=== PATIENT | female | born 1985 | race Caucasian/White ===

== ENCOUNTER → 2018-03-18 | Emergency (ER) | payer MEDICAID ==
[~2018-03-18] VITALS: Ht 149.9 cm; Wt 50.0 kg
[~2018-03-18] MED LIST: CEPHALEXIN500 M1 PO; CYMBALTA; FLEXERIL10 MG PO; LEVAQUIN 750MG750 MG PO; LORTAB 5/500 501 TAB PO; MAGIC MOUTH PO; MOTRIN800 MG PO; NO HOME MEDICATIONS; NORCO 325 MG-51 TAB PO; PEN-VEE K500 MG PO; PENICILLIN V500 MG PO; PERCOCET 325 MG1 TA2 PO; PERIDEX (CHLOR480 ML MM; PHENERGAN 25 TA25 MG PO; REMERON15 M1 PO; TORADOL 10MG TA10 MG PO; TRAMADOL50 MG PO; ZIPRASIDONE
[2018-03-18 19:08] VITALS: BP 106/70; PULSE 82; TEMP 98.1
[2018-03-18 19:36] LABS: COLLECTION METHOD CLEAN CATCH
[2018-03-18 19:43] LABS: BASO % 0.3 % (0.0-2.0); EOS # 0.1 (0.0-0.7); GRAN # 6.9 (1.4-6.5); GRAN % 66.4 % (42.2-75.2); HEMATOCRIT 46.5 % (37.0-47.0); LYMPH # 2.8 (1.2-3.4); LYMPH % 27.1 % (20.0-51.0); MEAN CELL VOLUME 95 fl (80.0-100.0); MEAN CORPUSCULAR HEMOGLOBIN 33 pg (27.0-31.0); MEAN CORPUSCULAR HGB CONC 34 g/dl (33.0-37.0); MEAN PLATELET VOLUME 9.9 fl (7.4-10.4); MONO # 0.5 (0.1-0.6); MONO % 4.9 % (1.7-9.3); PLATELET COUNT 276 K/mm3 (130-400); RED BLOOD COUNT 4.88 M/mm3 (4.10-5.30); REDCELL DISTRIBUTION WIDTH-CV 13.6 % (11.5-14.5)
[2018-03-18 19:44] LABS: MUCOUS Present /lpf; PH 5 (5-8); URINE APPEARANCE Hazy; URINE BACTERIA Rare /hpf; URINE BILIRUBIN Negative (NEGATIVE); URINE BLOOD Negative (NEGATIVE); URINE COLOR Yellow; URINE GLUCOSE Negative (NEGATIVE); URINE KETONE Trace (NEGATIVE); URINE LEUKOCYTE ESTERASE Negative (NEGATIVE); URINE NITRATE Negative (NEGATIVE); URINE PROTEIN(semi-quant) Negative (NEGATIVE)
[2018-03-18 19:51] LABS: TRICYCLIC ANTIDEPRESS URINE NEGATIVE
[2018-03-18 19:52] LABS: ALANINE AMINOTRANSFERASE 36 U/L (9-52); ALBUMIN 4.4 gm/dL (3.5-5.0); ALKALINE PHOSPHATASE 73 U/L (50-136); ANION GAP 8 mmol/L (7-16); AST,SGOT 30 U/L (15-37); BILIRUBIN,TOTAL 0.4 mg/dL (0.0-1.0); BLOOD UREA NITROGEN 13 mg/dL (7-17); CALCIUM 9.7 mg/dL (8.4-10.2); CARBON DIOXIDE 27 mmol/L (22-30); CHLORIDE 104 mmol/L (98-107); CREATININE, serum 0.73 mg/dL (0.52-1.25); GLUCOSE 97 mg/dL (74-106); POTASSIUM 4.1 mmol/L (3.4-5.0); SODIUM 139 mmol/L (137-145); TOTAL PROTEIN 7.5 gm/dL (6.4-8.2)
[2018-03-18 19:54] LABS: ACETAMINOPHEN < 10 ug/mL (10-30); ALCOHOL(ethanol),MEDICAL < 10 mg/dL; SALICYLATE < 1.0 mg/dL
== END ==
LOC: COL.ER 19:05
PROVIDERS: Nurse Practitioner
DX: K04.7 Periapical abscess without sinus (principal); F17.210 Nicotine dependence, cigarettes, uncomplicated; Z88.7 Allergy status to serum and vaccine

== ENCOUNTER 2018-12-23 10:50 | Emergency (ER) | payer MEDICAID ==
[~2018-12-23] VITALS: Ht 149.9 cm; Wt 50.0 kg
[2018-12-23 11:39] LABS: BASO % 0.7 % (0.0-2.0); EOS # 0.1 (0.0-0.7); EOS % 1.5 % (0-4.0); GRAN # 3.5 (1.4-6.5); GRAN % 63.6 % (42.2-75.2); HEMATOCRIT 40.4 % (37.0-47.0); HEMOGLOBIN 13.6 g/dl (12.5-16.0); LYMPH # 1.5 (1.2-3.4); LYMPH % 27.5 % (20.0-51.0); MEAN CELL VOLUME 97 fl (80.0-100.0); MEAN CORPUSCULAR HEMOGLOBIN 33 pg (27.0-31.0); MEAN CORPUSCULAR HGB CONC 34 g/dl (33.0-37.0); MEAN PLATELET VOLUME 10.5 fl (7.4-10.4); MONO # 0.4 (0.1-0.6); MONO % 6.5 % (1.7-9.3); PLATELET COUNT 197 K/mm3 (130-400); RED BLOOD COUNT 4.18 M/mm3 (4.10-5.30); REDCELL DISTRIBUTION WIDTH-CV 14.2 % (11.5-14.5)
[2018-12-23 11:54] LABS: ALANINE AMINOTRANSFERASE 21 U/L (9-52); ALBUMIN 4.3 gm/dL (3.5-5.0); ALKALINE PHOSPHATASE 59 U/L (50-136); ANION GAP 6 mmol/L (7-16); AST,SGOT 30 U/L (15-37); BILIRUBIN,TOTAL 0.4 mg/dL (0.0-1.0); BLOOD UREA NITROGEN 10 mg/dL (7-17); CALCIUM 9.2 mg/dL (8.4-10.2); CARBON DIOXIDE 23 mmol/L (22-30); CHLORIDE 110 mmol/L (98-107); CREATININE, serum 0.74 (0.52-1.25); GLUCOSE 91 mg/dL (74-106); MAGNESIUM 2.2 mg/dL (1.6-2.3); POTASSIUM 3.7 mmol/L (3.4-5.0); SODIUM 139 mmol/L (137-145)
[2018-12-23 11:57] LABS: ACETAMINOPHEN < 10 ug/mL (10-30); ALCOHOL(ethanol),MEDICAL < 10 mg/dL; SALICYLATE < 1.0 mg/dL
[2018-12-23 12:01] LABS: COLLECTION METHOD CLEAN CATCH
[2018-12-23 12:22] LABS: AMORPHOUS CRYSTAL Present /uL; MUCOUS Present /lpf; PH 5 (5-8); SQUAMOUS EPITHELIAL 0-2 /hpf; TRICYCLIC ANTIDEPRESS URINE NEGATIVE; URINE APPEARANCE Cloudy; URINE BACTERIA None Seen /hpf; URINE BILIRUBIN Negative (NEGATIVE); URINE BLOOD Negative (NEGATIVE); URINE COLOR Amber; URINE GLUCOSE Negative (NEGATIVE); URINE KETONE Trace (NEGATIVE); URINE LEUKOCYTE ESTERASE Negative (NEGATIVE); URINE NITRATE Negative (NEGATIVE); URINE PROTEIN(semi-quant) 1+ (NEGATIVE); URINE UROBILINOGEN Negative (NEGATIVE)
[2018-12-23 12:24] LABS: TSH w REFLEX 0.427 uIU/mL (0.465-4.680)
[2018-12-24 15:36] VITALS: BP 102/66; TEMP 97.5
[2018-12-24 18:35] VITALS: PULSE 87
== END 2018-12-24 18:40 ==
LOC: COL.ER 10:50
PROVIDERS: Emergency Medicine
DX: F29 Unspecified psychosis not due to a substance or known physiological condition (principal)

== ENCOUNTER → 2019-01-29 | Outpatient (CLI) | payer MEDICAID ==
[2005-07-30 08:00] VITALS: TEMP 98.4
== END ==
LOC: COL.RAD 12:16
DX: M17.12 Unilateral primary osteoarthritis, left knee (principal)

== ENCOUNTER 2020-04-17 16:54 | Emergency (ER) | payer MEDICAID ==
[~2020-04-17] VITALS: Ht 147.3 cm; Wt 47.7 kg
[2020-04-17 17:32] VITALS: TEMP 98.3
[2020-04-17 18:32] LABS: BASO % 0.5 % (0.0-2.0); EOS # 0.1 (0.0-0.7); EOS % 1.9 % (0-4.0); HEMOGLOBIN 10.5 g/dl (12.5-16.0); LYMPH # 1.6 (1.2-3.4); LYMPH % 26.1 % (20.0-51.0); MEAN CELL VOLUME 95 fl (80.0-100.0); MEAN CORPUSCULAR HEMOGLOBIN 32 pg (27.0-31.0); MEAN CORPUSCULAR HGB CONC 34 g/dl (33.0-37.0); MEAN PLATELET VOLUME 12.2 fl (7.4-10.4); MONO # 0.5 (0.1-0.6); MONO % 7.3 % (1.7-9.3); PLATELET COUNT 177 K/mm3 (130-400); RED BLOOD COUNT 3.27 M/mm3 (4.10-5.30); REDCELL DISTRIBUTION WIDTH-CV 16.7 % (11.5-14.5)
[2020-04-17 18:36] LABS: ALANINE AMINOTRANSFERASE 108 U/L (4-34); ALKALINE PHOSPHATASE 46 U/L (50-136); ANION GAP 1 mmol/L (7-16); AST,SGOT 125 U/L (15-37); BILIRUBIN,TOTAL 0.3 mg/dL (0.0-1.0); BLOOD UREA NITROGEN 6 mg/dL (7-17); C-REACTIVE PROTEIN 4.5 mg/dL (0.0-0.9); CALCIUM 8.5 mg/dL (8.4-10.2); CARBON DIOXIDE 27 mmol/L (22-30); CHLORIDE 111 mmol/L (98-107); CREATININE, serum 0.49 (0.52-1.25); GLUCOSE 100 mg/dL (74-106); POTASSIUM 3.8 mmol/L (3.4-5.0); SODIUM 139 mmol/L (137-145); TOTAL PROTEIN 5.5 gm/dL (6.4-8.2)
[2020-04-17 18:55] LABS: TROPONIN-I < 0.012 ng/mL (0.000-0.035)
[2020-04-17 20:02] LABS: PROTHROMBIN TIME 11.6 SECONDS (9.7-12.8)
[2020-04-17 21:05] VITALS: BP 101/72
[2020-04-17 22:03] LABS: COLLECTION METHOD CLEAN CATCH
[2020-04-17 22:15] LABS: MUCOUS Present /lpf; PH 6 (5-8); URINE APPEARANCE Hazy; URINE BACTERIA Rare /hpf; URINE BILIRUBIN Negative (NEGATIVE); URINE BLOOD 3+ (NEGATIVE); URINE COLOR Yellow; URINE GLUCOSE Negative (NEGATIVE); URINE KETONE Negative (NEGATIVE); URINE LEUKOCYTE ESTERASE Trace (NEGATIVE); URINE NITRATE Negative (NEGATIVE); URINE PROTEIN(semi-quant) Negative (NEGATIVE); URINE RBC >50 /hpf; URINE UROBILINOGEN Negative (NEGATIVE)
[2020-04-17 22:17] LABS: TRICYCLIC ANTIDEPRESS URINE NEGATIVE
[2020-04-17] MEDS ORDERED: CEFTIN 250250 MG/TAB PO (23:18)
[2020-04-17] MEDS ORDERED: LASIX 20MG TABL20 MG PO (23:18)
[2020-04-18 00:21] VITALS: PULSE 74
== END 2020-04-18 00:22 | disposition home or self-care (01) ==
LOC: COL.ER 16:54
PROVIDERS: Nurse Practitioner
DX: N39.0 Urinary tract infection, site not specified (principal); R60.0 Localized edema; F17.210 Nicotine dependence, cigarettes, uncomplicated
CPT/HCPCS: J0696; J3010; J7030; Q9967

== ENCOUNTER 2021-01-19 04:08 | Emergency (ER) | payer MEDICAID ==
[~2021-01-19 04:08] MED LIST changes: +CEFTIN 250250 MG/TAB PO; +LASIX 20MG TABL20 MG PO
[2021-01-19 04:16] VITALS: TEMP 98
[2021-01-19 05:09] VITALS: BP 117/76; PULSE 92
== END 2021-01-19 05:09 | disposition home or self-care (01) ==
LOC: COL.ER 04:08
DX: M25.561 Pain in right knee (principal); R05.9 Cough, unspecified; Z20.822 Contact with and (suspected) exposure to COVID-19

== ENCOUNTER 2021-02-04 01:21 | Emergency (ER) | payer MEDICAID ==
[~2021-02-04] VITALS: Ht 152.4 cm; Wt 54.5 kg
[2021-02-04 12:20] LABS: TRICYCLIC ANTIDEPRESS URINE NEGATIVE
[2021-02-04 15:45] VITALS: TEMP 99.3
[2021-02-04 16:02] LABS: BASO % 0.6 % (0.0-2.0); EOS # 0.1 K/mm3 (0.0-0.7); EOS % 1.7 % (0-4.0); GRAN # 3.1 K/mm3 (1.4-6.5); GRAN % 64.2 % (42.2-75.2); HEMOGLOBIN 11.7 g/dl (12.5-16.0); LYMPH # 1.2 K/mm3 (1.2-3.4); LYMPH % 24.5 % (20.0-51.0); MEAN CELL VOLUME 93 fl (80.0-100.0); MEAN CORPUSCULAR HEMOGLOBIN 31 pg (27.0-31.0); MEAN CORPUSCULAR HGB CONC 33 g/dl (33.0-37.0); MEAN PLATELET VOLUME 10.7 fl (7.4-10.4); MONO # 0.4 K/mm3 (0.1-0.6); MONO % 8.8 % (1.7-9.3); PLATELET COUNT 266 K/mm3 (130-400); RED BLOOD COUNT 3.78 M/mm3 (4.10-5.30); REDCELL DISTRIBUTION WIDTH-CV 14.7 % (11.5-14.5)
[2021-02-04 16:18] LABS: HEMATOCRIT 35.3 % (37.0-47.0)
[2021-02-04 16:21] LABS: ALBUMIN 3.5 gm/dL (3.5-5.0); BILIRUBIN,TOTAL 0.4 mg/dL (0.2-1.2); CALCIUM 9.2 mg/dL (8.4-10.2); CREATININE, serum 0.8 mg/dL (0.57-1.11); POTASSIUM 4.1 mmol/L (3.5-4.5)
--- NOTE | 2021-02-04 18:53 | NUR ---
Sw was called to ER to meet with a pt that was homeless. Sw met with the pt and was informed that she was homeless in [place]. She informed me that she did not have anyone in [place] that she could stay with. The pt informed me that she had a grandma in [place], Cheri, ( [phone]). The pt states that she stays on the [address] at [facility] and J[facility] most of the time. 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 The pt states has case specialist name Brinda, from [facility]. I called [facility] and they informed me that her CM is lucas and her therapist is brinda. Jimmie made phone calls to [facility] [facility], and [facility] which stated they did not have beds avaliable or did not take outsiders. Jimmie spoke with Suri Camilo about it and senior warehouse clerk and Ramona CUNHA in ER.
[2021-02-04 22:20] VITALS: BP 115/61; PULSE 80
== END 2021-02-04 22:30 | disposition home or self-care (01) ==
LOC: COL.ER 01:21
PROVIDERS: Student in an Organized Health Care Education/Training Program
DX: F15.10 Other stimulant abuse, uncomplicated (principal); M25.569 Pain in unspecified knee; R05.9 Cough, unspecified; F17.210 Nicotine dependence, cigarettes, uncomplicated
CPT/HCPCS: J1200; J1630; J2060; J7030

== ENCOUNTER 2021-07-24 15:02 | Emergency (ER) | payer MEDICAID ==
[~2021-07-24] VITALS: Ht 157.5 cm; Wt 63.6 kg
[2021-07-24 15:47] LABS: BASO # 0.1 K/mm3 (0.0-0.2); BASO % 0.6 % (0.0-2.0); EOS # 0.1 K/mm3 (0.0-0.7); EOS % 1.3 % (0.0-4.0); GRAN # 5.1 K/mm3 (1.4-6.5); GRAN % 63.9 % (42.2-75.2); LYMPH # 1.7 K/mm3 (1.2-3.4); LYMPH % 21.5 % (20.0-51.0); MEAN CELL VOLUME 89 fl (80.0-100.0); MEAN CORPUSCULAR HEMOGLOBIN 30 pg (27-31); MEAN CORPUSCULAR HGB CONC 34 g/dl (33.0-37.0); MEAN PLATELET VOLUME 10.6 fl (7.4-10.4); MONO % 12.4 % (1.7-9.3); PLATELET COUNT 303 K/mm3 (130-400); RED BLOOD COUNT 3.99 M/mm3 (4.10-5.30); REDCELL DISTRIBUTION WIDTH-CV 15.1 % (11.5-14.5)
[2021-07-24 15:48] LABS: HEMATOCRIT 35.6 % (37.0-47.0)
[2021-07-24 16:13] LABS: ACETAMINOPHEN < 1.0 ug/mL (10-30); ALANINE AMINOTRANSFERASE 22 U/L (0-55); ALBUMIN 3.6 gm/dL (3.5-5.0); ALKALINE PHOSPHATASE 93 U/L (40-150); ANION GAP 12 mmol/L (7-16); AST,SGOT 34 U/L (5-34); BILIRUBIN,TOTAL 0.5 mg/dL (0.2-1.2); BLOOD UREA NITROGEN 23 mg/dL (7-19); CALCIUM 8.8 mg/dL (8.4-10.2); CARBON DIOXIDE 19 mmol/L (22-29); CHLORIDE 112 mmol/L (98-107); CREATININE, serum 0.86 mg/dL (0.57-1.11); GLUCOSE 123 mg/dL (70-99); POTASSIUM 3.9 mmol/L (3.5-4.5); SALICYLATE < 5.0 mg/dL (15.0-30.0); SODIUM 143 mmol/L (136-145); TOTAL PROTEIN 7.4 gm/dL (6.2-8.1)
[2021-07-24 17:21] LABS: TRICYCLIC ANTIDEPRESS URINE NEGATIVE
[2021-07-24 19:27] VITALS: BP 109/64; PULSE 94; TEMP 98
== END 2021-07-24 20:18 | disposition home or self-care (01) ==
LOC: COL.ER 15:02
PROVIDERS: Personal Emergency Response Attendant
DX: F15.159 Other stimulant abuse with stimulant-induced psychotic disorder, unspecified (principal); F17.210 Nicotine dependence, cigarettes, uncomplicated; Z20.822 Contact with and (suspected) exposure to COVID-19
CPT/HCPCS: J1630; J2060; J7030

== ENCOUNTER 2021-09-07 15:52 | Emergency (ER) | payer MEDICAID ==
[2021-09-07 16:40] VITALS: BP 115/63; PULSE 113; TEMP 98.9
== END 2021-09-07 18:00 | disposition left against medical advice (07) ==
LOC: COL.ER 15:52
DX: F23 Brief psychotic disorder (principal); F15.10 Other stimulant abuse, uncomplicated